=== PATIENT | male | born 1965 | race Caucasian/White ===

== ENCOUNTER → 2019-12-21 | Outpatient (CLI) | payer BC ==
[2019-12-21 11:32] LABS: BASOPHIL # 0.1 10^3/uL (0.0-0.1); BASOPHIL % 1.3 % (0.0-0.2); EOSINOPHIL # 0.2 10^3/uL (0.0-0.2); EOSINOPHIL % 3.3 % (0.0-5.0); LYMPHOCYTES # 2.48 10^3/uL1 (1.0-4.8); LYMPHOCYTES % 35.9 % (24.0-44.0); MEAN CORP HGB 28.9 pg (26-34); MONOCYTES # 0.7 10^3/uL (0.3-0.8); MONOCYTES % 10.1 % (5.0-12.0); NEUTROPHIL # 3.4 10^3/uL (1.8-7.7); NEUTROPHILS % 49.3 % (41.0-85.0); PLATELET COUNT 382 10^3/uL (150-400); RED CELL DISTRIBUTION WIDTH 13.2 % (11.5-14.5)
[2019-12-21 11:51] LABS: CALCIUM 9.2 mg/dL (8.4-10.5); CARBON DIOXIDE 28.7 mmol/L (20.0-32)
== END | disposition home or self-care (01) ==
LOC: LAB 11:05
PROVIDERS: ATTEND Internal Medicine Rheumatology
DX: M05.89 Other rheumatoid arthritis with rheumatoid factor of multiple sites (principal); Z79.899 Other long term (current) drug therapy
CPT/HCPCS: 36415; 80053; 85025

== ENCOUNTER → 2020-07-30 | Outpatient (CLI) | payer BC ==
[2020-07-30 11:58] LABS: MEAN CORP HGB 29.5 pg (26-34); RED CELL DISTRIBUTION WIDTH 13.9 % (11.5-14.5)
[2020-07-30 13:09] LABS: CALCIUM 9.2 mg/dL (8.4-10.5); CARBON DIOXIDE 26.3 mmol/L (20.0-32)
== END | disposition home or self-care (01) ==
LOC: LAB 11:45
PROVIDERS: ATTEND Internal Medicine Rheumatology
DX: M1A.0720 Idiopathic chronic gout, left ankle and foot, without tophus (tophi) (principal); M05.89 Other rheumatoid arthritis with rheumatoid factor of multiple sites
CPT/HCPCS: 36415; 80053; 84550; 85027; 85651; 86140

== ENCOUNTER → 2020-10-16 | Outpatient (CLI) | payer BC ==
--- NOTE | 2020-10-16 09:33 | DIREP ---
PROCEDURE:XRAY PELVIS 1-2 VWS COMPARISON:None. INDICATIONS:LUMBAGO W/BILAT SCIATICA FINDINGS: BONES:Normal. JOINTS:Mild sacroiliac degenerative change. SOFT TISSUES:Normal. OTHER:No additional findings. CONCLUSION:Mild sacroiliac degenerative change without acute bony abnormality. Dictated by: Argentina Johnston M.D. on 10/16/2020 at 09:30 AM
--- NOTE | 2020-10-16 09:35 | DIREP ---
PROCEDURE:XRAY SPINE LUMBAR 2-3 VWS COMPARISON:None. INDICATIONS:LUMBAGO W/BILAT SCIATICA TECHNIQUE:AP, lateral, and coned down lateral views of the lumbar spine are provided. FINDINGS: ALIGNMENT:Minimal dextro convex curvature of the lumbar spine. VERTEBRAE:Normal vertebral body height. Diffuse anterior osteophyte formation at all levels. Moderate diffuse facet arthrosis. DISK SPACES:Mild loss of disc height at L4-5. SPONDYLOLISTHESIS:None. SACROILIAC JOINTS:Mild degenerative changes. OTHER:Normal. CONCLUSION:Degenerative changes without acute bony abnormality. Dictated by: Argentina Johnston M.D. on 10/16/2020 at 09:32 AM
== END | disposition home or self-care (01) ==
LOC: RAD 08:56
PROVIDERS: ATTEND Nurse Practitioner Family
DX: M47.818 Spondylosis without myelopathy or radiculopathy, sacral and sacrococcygeal region (principal); M47.816 Spondylosis without myelopathy or radiculopathy, lumbar region; M25.78 Osteophyte, vertebrae
CPT/HCPCS: 72100; 72170